=== PATIENT | male | born 1995 | race African-American/Black ===

== ENCOUNTER 2017-02-21 08:15 | Day surgery (SDC) | payer MEDICAID, OTHER ==
[~2017-02-21 08:15] MED LIST: DIPHENHYDRAMINE HCL 50 MG/ML VIAL ONE; EPINEPHRINE INJ 1 MG/10 ML DISP.SYRIN ONE; FENTANYL CITRATE INJ/PF 100 MCG/2 ML AMPUL ONE; FLUMAZENIL INJ 0.5 MG/5 ML VIAL IV ONE; GLUCAGON,HUMAN RECOMB 1 MG INJ ONE; MIDAZOLAM 2 MG/2 ML INJ ONE; NALOXONE HCL INJ/PF 0.4 MG/1 ML SDV ONE; ONDANSETRON HCL INJ/PF 4 MG/2 ML SDV ONE; PROMETHAZINE HCL INJ 25 MG/1 ML VIAL ONE
--- NOTE | 2017-02-21 08:57 | Operative Report ---
Operative Report DATE OF SURGERY: 02/21/17 Operative Report: The risks benefits and alternatives of the procedure explained to the patient in detail and informed consent is obtained that GIF Olympus video scope was inserted into the patient's mouth and hypopharynx the esophagus is identified intubated and insufflated the scope was then advanced through the esophagus stomach and duodenum retroflexion maneuver is done the esophagus stomach and first and second portions of the duodenum examined PREOPERATIVE DIAGNOSIS: Epigastric pain. Dysphagia POSTOPERATIVE DIAGNOSIS: Esophagitis biopsies obtained rule out eosinophilic esophagitis. Gastritis status post biopsy rule out H. pylori OPERATION: EGD with biopsy SURGEON: TAMIKA GREEN ANESTHESIA: Moderate Sedation - 2 mg of Versed, 25 mg of Benadryl, 50 g of fentanyl. Conscious sedation monitored to her in time 15 minutes. TISSUE REMOVED OR ALTERED: Gastric specimens obtained. Esophageal mucosal specimen obtained COMPLICATIONS: None. ESTIMATED BLOOD LOSS: none INTRAOPERATIVE FINDINGS: No stricture noted in the esophagus. No obstructive lesion noted PROCEDURE: Patient tolerated the procedure well. No immediate postprocedure complications are noted. Patient is discharged in good condition. Discharge date 02/21/2017. Discharge diet: Regular. Discharge activity: Regular. 2-3 week follow-up to discuss findings. Patient is instructed to call the office or proceed to the emergency room should there be any further problems or questions. We'll await on biopsies.
[2017-02-21 09:52] VITALS: BP 123/49
== END 2017-02-21 10:05 | disposition home or self-care (01) ==
LOC: END 08:15
PROVIDERS: ATTEND Internal Medicine Gastroenterology
PROC: 0DB68ZX Excision of Stomach, Via Natural or Artificial Opening Endoscopic, Diagnostic (ICD-10-PCS; 2017-02-21)
PROC: 0DB58ZX Excision of Esophagus, Via Natural or Artificial Opening Endoscopic, Diagnostic (ICD-10-PCS; principal; 2017-02-21 08:30)
DX: K29.50 Unspecified chronic gastritis without bleeding (principal); J45.909 Unspecified asthma, uncomplicated; F17.210 Nicotine dependence, cigarettes, uncomplicated; Z79.899 Other long term (current) drug therapy
CPT/HCPCS: 43239; 88305 ×2; J2250; J1200; J3010; J0171; J1610; J2310; J2405; J2550; J3490

== ENCOUNTER 2017-07-07 01:30 | Emergency (ER) | payer OTHER ==
[2017-07-07] MEDS ORDERED: LIDOCAINE 1% INJ-PF (10 MG/ML) 30 ML SDV INJ ONE (04:38)
[2017-07-07] MEDS ORDERED: DIPH/PERTUSS(ACELL)/TETANUS VAC/PF 0.5 ML SYR (>=10YO) IM ONE (04:40)
--- NOTE | 2017-07-07 04:42 | ER Document Report ---
ED General - General Chief Complaint: Laceration Stated Complaint: RT LEG INJURY Time Seen by Provider: 07/07/17 04:31 Notes: Patient is a 21-year-old male who presents with complaint of a fall and a cut to right leg. He says he is doing his nighttime jogging and he slipped and fell. He said he got up and continue running and then felt some warm drink down his leg and look down no skin laceration to his left leg just below his left knee. He says able to move his knee and his leg without difficulty but has a laceration therefore came here. He is unsure when his last tetanus shot was. No other complaints. TRAVEL OUTSIDE OF THE [place] IN LAST 30 DAYS: No - Related Data Allergies/Adverse Reactions: No Known Allergies Allergy (Verified 07/07/17 01:37) Past Medical History - Social History Smoking Status: Never Smoker Frequency of alcohol use: None Drug Abuse: None Family History: Reviewed & Not Pertinent - Past Medical History Cardiac Medical History: Denies: Hx Coronary Artery Disease, Hx Heart Attack, Hx Hypertension Pulmonary Medical History: Reports: Hx Asthma - CHILD SHIPLEY Denies: Hx Bronchitis, Hx COPD, Hx Pneumonia Neurological Medical History: Denies: Hx Cerebrovascular Accident, Hx Seizures Renal/ Medical History: Denies: Hx Peritoneal Dialysis Musculoskeltal Medical History: Denies Hx Arthritis - Immunizations Hx Diphtheria, Pertussis, Tetanus Vaccination: Yes Review of Systems - Review of Systems Notes: My Normal Review Basic REVIEW OF SYSTEMS: CONSTITUTIONAL : Denies fever, chills, or sweats. Denies recent illness. RESPIRATORY: Denies cough, cold, or chest congestion. Denies shortness of breath, difficulty breathing, or wheezing. GENITOURINARY: Denies difficulty urinating, painful urination, burning, frequency, or blood in urine. MUSCULOSKELETAL: Laceration below left knee. SKIN: Denies rash or skin lesions. NEUROLOGICAL: Denies altered mental status or loss of consciousness. Denies headache. Denies weakness or paralysis or loss of use of either side. Denies problems with gait or speech. Denies sensory or motor loss. ALL OTHER SYSTEMS REVIEWED AND NEGATIVE. Physical Exam - Vital signs Vitals: Temp Pulse Resp BP Pulse Ox 97.6 F 68 18 125/63 99 07/07/17 01:37 07/07/17 01:37 07/07/17 01:37 07/07/17 01:37 07/07/17 01:37 - Notes Notes: General Appearance: Well nourished, alert, cooperative, no acute distress, no obvious discomfort. Vitals: reviewed, See vital signs table. Extremities: strength 5/5 in all extremities, good pulses in all extremities, no swelling or tenderness in the extremities, gaping 3 cm laceration below the left knee. Patient is able to flex and extend the knee without any difficulty. No obvious deformity. Skin: warm, dry, appropriate color, no rash Neuro: speech clear, oriented x 3, normal affect, responds appropriately to questions. Course - Re-evaluation Re-evalutation: 07/07/17 06:24 Patient's wound was thoroughly irrigated by me. It was anesthetized and sutured closed. I do not feel patient meeds x-rays as the patient was able to bear weight and was even running after the injury without any difficulty. Patient's will be discharged home but is encouraged to return to ER if there is any redness, swelling, or signs of infection. Sutures to be removed in 7 days. Patient agrees with plan will be discharged home. Dictation of this chart was performed using voice recognition software; therefore, there may be some unintended grammatical errors. - Vital Signs Vital signs: Temp Pulse Resp BP Pulse Ox 97.6 F 68 18 125/63 99 07/07/17 01:37 07/07/17 01:37 07/07/17 01:37 07/07/17 01:37 07/07/17 01:37 Procedures - Laceration/Wound Repair right leg Wound length (cm): 4 Wound's Depth, Shape: Linear Laceration pre-procedure: Other - peroxide Anesthetic type: 1% Lidocaine Volume Anesthetic (mLs): 5 Wound explored: Clean Irrigated w/ Saline (mLs): 50 Wound Repaired With: Sutures Suture Size/Type: 4:0, Ethilon Number of Sutures: 6 Complications: No Discharge - Discharge Clinical Impression: Laceration Condition: Good Disposition: HOME, SELF-CARE Additional Instructions: LACERATION CARE: Your laceration has been sutured to keep the skin edges aligned during healing. The time of suture removal depends on the nature and location of your cut. Please follow the care instructions the doctor has outlined for you and return for further care, according to the schedule you've been given. Keep the wound and dressing clean. Unless you were told otherwise, you may shower daily, blotting the wound dry with a clean, unused towel. At other times, If the dressing gets wet or blood soaked, remove it and blot the wound dry, then reapply a new dressing. Unless you were instructed otherwise, dressings should be changed at least daily. If any signs of infection occur (swelling, redness, drainage, increasing tenderness, red streaks, tender lumps in the armpit or groin above the laceration, or fever), see the doctor immediately. SOAP CLEANSING: Gently wash the wound daily using a mild soap (like Ivory, Phisoderm, Neutrogena). Use warm water, rubbing gently until all debris, ooze, and crusting have been washed from the wound. Allow to dry briefly (about 10 minutes) after cleaning. Repeat this cleansing at least three times a day for the first two days and then once or twice a day. TETANUS IMMUNIZATION GIVEN: You have been given an immunization against tetanus. Please record this in your records. In general, a booster is needed only once every 10 years. The tetanus shot protects against tetanus or "lockjaw," which is a complication of certain wound infections (the tetanus shot cannot protect against the actual infection). The immunization site may become warm and red due to local reaction. If this occurs, apply warm compresses and take aspirin or ibuprofen to reduce inflammation and discomfort. Return for evaluation if the reaction becomes severe. FOLLOW-UP CARE: Your sutures should be removed in __7___ days. To facilitate a timely removal of your sutures, you may return to the Emergency Department at [facility]. You do not need to call for an appointment, but the best time to come in for suture removal is early in the morning. If you have been referred to another physician for follow-up care, call that physicians office for an appointment as you were instructed. If you experience a significant change in your laceration, or if you are concerned there may be an infection (swelling, redness, drainage, increasing tenderness, red streaks, tender lumps in the armpit or groin above the laceration, or fever) , return to the Emergency Department immediately re-evaluation.
[2017-07-07] MEDS ORDERED: IBUPROFEN 600 MG TABLET PO ONE (05:29)
[2017-07-07 07:14] VITALS: BP 128/70
== END 2017-07-07 06:45 | disposition home or self-care (01) ==
LOC: ER 01:30
PROC: 0HQKXZZ Repair Right Lower Leg Skin, External Approach (ICD-10-PCS; principal; 2017-07-07)
DX: S81.811A Laceration without foreign body, right lower leg, initial encounter (principal); W45.8XXA Other foreign body or object entering through skin, initial encounter; Y93.02 Activity, running; Z23 Encounter for immunization
CPT/HCPCS: 90471; 90715; 99282

== ENCOUNTER 2017-07-15 15:51 | Emergency (ER) | payer MEDICAID, OTHER ==
[2017-07-15 15:55] VITALS: BP 142/63
--- NOTE | 2017-07-15 16:12 | ER Document Report ---
HPI - HPI Pain Level: 2 Notes: Patient presents the ED for suture removal to the right lower leg status post laceration and repair 8 days ago. Patient states that he has not had any difficulties with the sutures. The sutures remained intact. He has not noticed any redness, swelling, drainage, abscess, streaks. Patient denies any pain or discomfort. He is ambulating without any difficulties. Patient did receive his tetanus update upon initial visit. No other concerns or complaints at this time. Denies any headache, fever, chest pain, palpitations, syncope, cough, shortness of breath, wheeze, dyspnea, abdominal pain, nausea/vomiting/ diarrhea, or rash. - ROS Notes: REVIEW OF SYSTEMS: CONSTITUTIONAL : Denies fever, chills, or sweats. Denies recent illness. CARDIOVASCULAR: Denies chest pain. Denies palpitations or racing or irregular heart beat. Denies ankle edema. RESPIRATORY: Denies cough, cold, or chest congestion. Denies shortness of breath, difficulty breathing, or wheezing. GASTROINTESTINAL: Denies abdominal pain or distention. Denies nausea, vomiting , or diarrhea. Denies blood in vomitus, stools, or per rectum. Denies black, tarry stools. Denies constipation. GENITOURINARY: Denies difficulty urinating, painful urination, burning, frequency, blood in urine, or discharge. MUSCULOSKELETAL: Denies back or neck pain or stiffness. Denies joint pain or swelling. SKIN: see hpi NEUROLOGICAL: Denies confusion or altered mental status. Denies passing out or loss of consciousness. Denies dizziness or lightheadedness. Denies headache. Denies weakness or paralysis or loss of use of either side. Denies problems with gait or speech. Denies sensory loss, numbness, or tingling. ALL OTHER SYSTEMS REVIEWED AND NEGATIVE. 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 LUNGS: Breath sounds clear to auscultation bilaterally and equal. No wheezes rales or rhonchi. HEART: Regular rate and rhythm without murmurs, rubs, gallops. Musculoskeletal: Rt leg: FROM to passive/active. Strength 5+/5. Extremities: No cyanosis, clubbing, or edema b/l. Peripheral pulses 2+. Capillary refill less than 3 seconds. NEUROLOGICAL: Cranial nerves grossly intact. Normal speech, normal gait. Normal sensory, motor exams PSYCH: Normal mood, normal affect. SKIN: Healed approx 4cm laceration with sutures intact. No wound dehiscense, abscess, erythema, inflammation, streaks, or discharge noted. Non-tender. Sutures removed with forceps/scissors Steri-strips with benzoin placed - INFECTION CONTROL TRAVEL OUTSIDE OF THE [place] IN LAST 30 DAYS: No - RESPIRATORY O2 Sat by Pulse Oximetry: 98 Course - Re-evaluation Re-evalutation: 07/15/17 16:20 Patient is an afebrile, well-hydrated, 21-year-old male who presents the ED for suture removal. Vitals are stable. PE otherwise unremarkable. The laceration appears to be well-healed. 6 sutures were removed successfully without any complications. No signs or symptoms of infection at this time. Steri-Strips were placed for added support to allow for continued healing. Patient to allow Steri-Strips to fall off on their own or take them off in 5-7 days if they are still there. Conservative measures for symptoms otherwise as reviewed discharge. Recheck with your PCM this week. Return to the ED with any worsening/concerning symptoms otherwise as reviewed in discharge. Patient is in agreement. - Vital Signs Vital signs: Temp Pulse Resp BP Pulse Ox 97.8 F 58 L 16 142/63 H 98 07/15/17 15:52 07/15/17 15:52 07/15/17 15:52 07/15/17 15:52 07/15/17 15:52 Discharge - Discharge Clinical Impression: Visit for suture removal Condition: Stable Disposition: HOME, SELF-CARE Instructions: Suture Removal Additional Instructions: Keep the skin clean May wash with soap and water Leave Steri-Strips in place until they fall off on the round Monitor for any signs of infection Recheck with your PCM this week Return to the ED with any worsening symptoms and/or development of fever, headache, chest pain, palpitations, syncope, shortness of breath, trouble breathing, abdominal pain, n/v/d, muscle weakness/paralysis, numbness/tingling, abscess, streaks, redness, warmth, wound dehiscense, or other worsening symptoms that are concerning to you. Forms: Elevated Blood Pressure Referrals: [facility] [Provider Group] - Follow up as needed [facility] [Provider Group] - Follow up as needed
== END 2017-07-15 16:20 | disposition home or self-care (01) ==
LOC: ER 15:51
DX: Z48.02 Encounter for removal of sutures (principal)

== ENCOUNTER 2019-01-21 01:14 | Emergency (ER) | payer MEDICAID, OTHER ==
[2019-01-21] MEDS ORDERED: DIPH/PERTUSS(ACELL)/TETANUS VAC/PF 0.5 ML SYR (>=10YO) IM ONE (01:32)
[2019-01-21] MEDS ORDERED: LIDOCAINE 1%/EPINEPHRINE INJ 20 ML VIAL INJ ONE (01:33)
[2019-01-21] MEDS ORDERED: FENTANYL CITRATE INJ/PF 100 MCG/2 ML AMPUL IV PRN (01:33)
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
[2019-01-21] MEDS ORDERED: HYDROCODONE/ACETAMINOPHEN 5-325 MG (6 TAB/ER DISP) PO PRN (04:38)
[2019-01-21] MEDS ORDERED: ONDANSETRON ODT 4 MG TAB (6 TAB/ER DISP) PO PRN (04:38)
[2019-01-21 05:32] VITALS: BP 111/82
== END 2019-01-21 05:32 | disposition home or self-care (01) ==
LOC: ER 01:14
DX: S42.192A Fracture of other part of scapula, left shoulder, initial encounter for closed fracture (principal); S01.312A Laceration without foreign body of left ear, initial encounter; S01.81XA Laceration without foreign body of other part of head, initial encounter; S01.01XA Laceration without foreign body of scalp, initial encounter; Y00.XXXA Assault by blunt object, initial encounter; Y93.01 Activity, walking, marching and hiking; Y92.838 Other recreation area as the place of occurrence of the external cause; R11.2 Nausea with vomiting, unspecified; R53.1 Weakness; Z23 Encounter for immunization
CPT/HCPCS: 99284; 90471; 96374; 71045; 73010; 73030; 70450; 72125; 90715; 12004; 12013; L0120; J3010; J3490

== ENCOUNTER 2019-01-29 12:53 | Emergency (ER) | payer OTHER ==
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
== END 2019-01-29 13:53 | disposition home or self-care (01) ==
LOC: ER 12:53
DX: S01.81XD Laceration without foreign body of other part of head, subsequent encounter (principal); Y09 Assault by unspecified means

== ENCOUNTER 2019-05-27 13:23 | Emergency (ER) | payer OTHER ==
[2019-05-27] MEDS ORDERED: DIPH/PERTUSS(ACELL)/TETANUS VAC/PF 0.5 ML SYR (>=10YO) IM ONE (13:49)
[2019-05-27] MEDS ORDERED: HYDROCODONE/ACETAMINOPHEN 5-325 MG TABLET PO ONE (13:49)
[2019-05-27] MEDS ORDERED: LIDOCAINE 1% INJ-PF (10 MG/ML) 30 ML SDV INJ ONE ×2 (13:50→15:59)
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
--- NOTE | 2019-05-27 17:16 | ER Document Report ---
ED General - General Chief Complaint: Finger Injury Stated Complaint: LACERATION Time Seen by Provider: 05/27/19 13:49 Primary Care Provider: VALENTÍN CASTANEDA MD [ACTIVE STAFF] - Follow up in 1 week CORIN FANG MD [ACTIVE STAFF] - Follow up in 1 week (for orthopedic follow up) Mode of Arrival: Ambulatory TRAVEL OUTSIDE OF THE [place] IN LAST 30 DAYS: No - HPI Notes: 23-year-old male to the emergency department with complaints of a left index finger laceration that occurred just prior to arrival. He states that he got his finger caught in a heavy door. He states that he did not tried to pull the finger out. States that it bled in his finger is very swollen. He denies any nail damage. Unsure about his tetanus shot. He denies any decrease and range of motion, or any numbness and tingling in the finger. He is right-hand dominant. - Related Data Allergies/Adverse Reactions: No Known Allergies Allergy (Verified 05/27/19 13:31) Past Medical History - General Information source: Patient - Social History Smoking Status: Current Every Day Smoker Frequency of alcohol use: Social Drug Abuse: Marijuana Family History: Reviewed & Not Pertinent Patient has suicidal ideation: No Patient has homicidal ideation: No - Past Medical History Cardiac Medical History: Denies: Hx Coronary Artery Disease, Hx Heart Attack, Hx Hypertension Pulmonary Medical History: Reports: Hx Asthma - CHILD SHIPLEY Denies: Hx Bronchitis, Hx COPD, Hx Pneumonia Neurological Medical History: Denies: Hx Cerebrovascular Accident, Hx Seizures Renal/ Medical History: Denies: Hx Peritoneal Dialysis Musculoskeletal Medical History: Denies Hx Arthritis Past Surgical History: Reports: Hx Orthopedic Surgery - left wrist - Immunizations Hx Diphtheria, Pertussis, Tetanus Vaccination: Yes Review of Systems - Review of Systems Constitutional: No symptoms reported EENT: No symptoms reported Cardiovascular: denies: Chest pain, Dizziness, Lightheaded Respiratory: denies: Cough, Short of breath Gastrointestinal: denies: Abdominal pain, Diarrhea, Nausea, Vomiting Musculoskeletal: Other - Left index finger pain and laceration Skin: Other - Patient to left index finger Physical Exam - Vital signs Vitals: Temp Pulse Resp BP Pulse Ox 98.2 F 77 18 132/78 H 97 05/27/19 13:42 05/27/19 13:42 05/27/19 13:42 05/27/19 13:42 05/27/19 13:42 Interpretation: Normal - General General appearance: Appears well, Alert In distress: Mild Notes: Mild pain distress from left index finger laceration - HEENT Head: Normocephalic, Atraumatic Eyes: Normal Pupils: PERRL - Respiratory Respiratory status: No respiratory distress Chest status: Nontender Breath sounds: Normal Chest palpation: Normal - Cardiovascular Rhythm: Regular Heart sounds: Normal auscultation Murmur: No - Extremities Notes: There is a laceration to the medial aspect of the left finger with bleeding controlled. There is evidence of soft tissue contusion. There is no nail damage. Patient has full range of motion in this finger against resistance with 5 out of 5 strength in flexion and extension. There is no snuffbox tenderness to the hands, handgrip is 5 out of 5 bilaterally, cap refill is less than seconds throughout. Radial pulses are intact and equal. Nontender to palpation over the palm and dorsum of the left hand, the left wrist, the left elbow. - Neurological Neuro grossly intact: Yes Cognition: Normal Orientation: AAOx4 [place] Coma Scale Eye Opening: Spontaneous [place] Coma Scale Verbal: Oriented [place] Coma Scale Motor: Obeys Commands [place] Coma Scale Total: 15 Speech: Normal Motor strength normal: LUE, RUE, LLE, RLE Sensory: Normal - Psychological Associated symptoms: Normal affect, Normal mood - Skin Skin Temperature: Warm Skin Moisture: Dry Skin irregularity: Laceration - There is a laceration to the medial (ulnar) aspect of the left index finger. Laceration is approximately centimeters long and it is evident that the tissue is contused under it. There is no active bleeding. There is no evidence of foreign body. This wound does require suturing Course - Re-evaluation Re-evalutation: Impression: Left index finger laceration without evidence for tendon laceration. An x-ray was ordered for the patient but he has declined it stating that he does not need it because he does not think he broke his finger. He does not have any nail damage. Despite encouraging him to get x-ray to evaluate for possible tuft fracture he has denied the x-ray. Repaired the finger with 9 sutu res. Then a nonadhesive dressing was applied as well as a finger splint. Patient home with pain medicines and have him follow in 7 days for suture removal. He agrees with the plan - Vital Signs Vital signs: Temp Pulse Resp BP Pulse Ox 97.7 F 62 16 148/89 H 99 05/27/19 17:41 05/27/19 17:41 05/27/19 17:41 05/27/19 17:41 05/27/19 17:41 Procedures - Laceration/Wound Repair Left Medial Finger 2nd digit Wound length (cm): 3 Wound's Depth, Shape: Superficial, Contused tissue. No: Nail-avulsed Laceration pre-procedure: Sterile PPE donned, Sterile drapes applied, Shur-Clens applied Anesthetic type: 1% Lidocaine - digital block was performed Volume Anesthetic (mLs): 5 Wound explored: Clean, No foreign body removed Irrigated w/ Saline (mLs): 200 Wound Debrided: Minimal - Mild subcutaneous tissue debridement Wound Repaired With: Sutures Suture Size/Type: 4:0 Number of Sutures: 9 Layer Closure?: No Post-procedure wound care: Sterile dressing applied, Splint applied Post-procedure NV exam normal: Yes Discharge - Discharge Clinical Impression: Finger laceration Qualifiers: Encounter type: initial encounter Finger: index finger Damage to nail status: without damage Foreign body presence: without foreign body Laterality: left Qualified Code(s): S61.211A - Laceration without foreign body of left index finger without damage to nail, initial encounter Condition: Stable Disposition: HOME, SELF-CARE Instructions: Laceration Care ([facility]) Additional Instructions: KEEP FINGER SPLINTED. MAY WASH WITH WARM SOAPY WATER DAILY, THEN PAT DRY, REAPPLY NONADHESIVE DRESSING AND SPLINT. COMPLETE ANTIBIOTICS. WOUND CHECK WITH KERRI PECK HERE IN 3 DAYS. SUTURE REMOVAL IN 7-10 days. Prescriptions: Cephalexin Monohydrate [Keflex 500 mg Capsule] 500 mg PO QID #28 capsule Hydrocodone/Acetaminophen [[place] 5-325 Tablet] 1 each PO Q6H PRN #12 tablet PRN Reason: Ibuprofen [Motrin 800 mg Tablet] 800 mg PO Q8H PRN #30 tab PRN Reason: Forms: Return to Work Referrals: VALENTÍN CASTANEDA MD [ACTIVE STAFF] - Follow up in 1 week CORIN FANG MD [ACTIVE STAFF] - Follow up in 1 week (for orthopedic follow up)
[2019-05-27 17:42] VITALS: BP 148/89
== END 2019-05-27 17:43 | disposition home or self-care (01) ==
LOC: ER 13:23
PROC: 0HQGXZZ Repair Left Hand Skin, External Approach (ICD-10-PCS; principal; 2019-05-27)
DX: S61.211A Laceration without foreign body of left index finger without damage to nail, initial encounter (principal); W23.0XXA Caught, crushed, jammed, or pinched between moving objects, initial encounter; F17.200 Nicotine dependence, unspecified, uncomplicated; J45.909 Unspecified asthma, uncomplicated
CPT/HCPCS: 99282; 90471; 90715; 12002; J3490